=== PATIENT | female | born 1985 ===

== ENCOUNTER 2017-04-27 12:45 | Emergency (ER) | payer OTHER ==
[2017-04-27 13:00] VITALS: BP 123/82; PULSE 69; RESP 17; TEMP 98.2; O2SAT 98
--- NOTE | 2017-04-27 13:16 | C.PDOC ---
History Of Present Illness 31 yr old female presents to the ER with complaints of periumbilical and superpubic pain for the past 3 days. Patient states its waxing and waning, worse with movement and urination. Reports of urinary frequency. Patient states LMP was 3 weeks ago and is on control. Denies fever, chest pain, SOB, nausea, vomiting, diarrhea, constipation, dysuria, incontinence, back pain, weakness or numbness. No prior surgical history. Time Seen by Provider: 04/27/17 13:03 Chief Complaint (Nursing): Abdominal Pain History Per: Patient History/Exam Limitations: no limitations Onset/Duration Of Symptoms: Hrs (3), Waxing/Waning Past Medical History Reviewed: Historical Data, Nursing Documentation, Vital Signs Vital Signs: Last Vital Signs Temp 98.2 F 04/27/17 12:57 Pulse 69 04/27/17 12:57 Resp 17 04/27/17 12:57 BP 123/82 04/27/17 12:57 Pulse Ox 98 04/27/17 13:30 - Medical History PMH: Anxiety, Asthma Family History: States: No Known Family Hx - Social History Hx Tobacco Use: No Hx Alcohol Use: No Hx Substance Use: No - Immunization History Hx Tetanus Toxoid Vaccination: No Hx Influenza Vaccination: No Hx Pneumococcal Vaccination: No Review Of Systems Except As Marked, All Systems Reviewed And Found Negative. Constitutional: Negative for: Fever Cardiovascular: Negative for: Chest Pain Respiratory: Negative for: Shortness of Breath Gastrointestinal: Positive for: Abdominal Pain (Periumbilical and superpubic ). Negative for: Nausea, Vomiting, Diarrhea, Constipation Genitourinary: Positive for: Frequency (Urinary ). Negative for: Dysuria, Incontinence Musculoskeletal: Negative for: Back Pain Neurological: Negative for: Weakness, Numbness Physical Exam - Physical Exam Appears: Non-toxic, No Acute Distress Skin: Warm, Dry, No Rash Head: Atraumatic, Normacephalic Oral Mucosa: Moist Chest: Symmetrical, No Tenderness Cardiovascular: Rhythm Regular, No Murmur Respiratory: Normal Breath Sounds, No Rales, No Rhonchi, No Stridor, No Wheezing Gastrointestinal/Abdominal: Soft, Tenderness (Mild superpubic tenderness.), No Distention, No Guarding, No Rebound Back: Normal Inspection, No CVA Tenderness Extremity: Normal ROM, No Swelling Neurological/Psych: Oriented x3, Normal Speech, Normal Motor ED Course And Treatment - Laboratory Results Urine POC: Negative O2 Sat by Pulse Oximetry: 98 (RA ) Pulse Ox Interpretation: Normal Medical Decision Making Medical Decision Making: PLAN: * POC * Urinalysis Disposition Counseled Patient/Family Regarding: Studies Performed, Diagnosis, Need For Followup, Rx Given - Disposition Referrals: YOUR,PMD [Other] Disposition: HOME/ ROUTINE Disposition Time: 14:02 Condition: GOOD Prescriptions: Nitrofurantoin Macrocrystals [Macrobid] 1 cap PO BID #14 cap Phenazopyridine HCl [Pyridium] 200 mg PO BID #6 tablet Instructions: Urinary Tract Infection in Women (ED) Forms: Work Excuse - Clinical Impression Clinical Impression: UTI (urinary tract infection) - Scribe Statement The provider has reviewed the documentation as recorded by the Marjorieibsherman Owens Provider Attestation: All medical record entries made by the Scribe were at my direction and personally dictated by me. I have reviewed the chart and agree that the record accurately reflects my personal performance of the history, physical exam, medical decision making, and the department course for this patient. I have also personally directed, reviewed, and agree with the discharge instructions and disposition.
[2017-04-27 13:48] LABS: RBC URINE 111 /hpf (0-3); URINE BACTERIA RARE (<OCC); URINE BILIRUBIN NEGATIVE (NEGATIVE); URINE BLOOD 3+ (NEGATIVE); URINE COLOR Yellow (YELLOW); URINE GLUCOSE (UA) NORMAL (Normal); URINE KETONE NEGATIVE (NEGATIVE); URINE LEUKOCYTE ESTERASE 3+ Leu/uL (Negative); URINE PROTEIN 1+ mg/dL (NEGATIVE); URINE UROBILINOGEN NORMAL mg/dL (0.2-1.0); WBC URINE 198 /hpf (0-5)
== END 2017-04-27 14:10 | disposition home or self-care (01) ==
LOC: C.ER 12:45
DX: N39.0 Urinary tract infection, site not specified (principal)

== ENCOUNTER 2017-11-12 13:51 | Emergency (ER) | payer OTHER ==
[2017-11-12 14:23] VITALS: BMI 32.2
[2017-11-12 14:25] VITALS: O2SAT 100
--- NOTE | 2017-11-12 16:00 | US ---
HISTORY: pain ruq COMPARISON: None available TECHNIQUE: Sonographic evaluation of the right upper quadrant of the abdomen. FINDINGS: LIVER: Measures 17.7 cm in length and appears unremarkable. No focal hepatic mass identified. The main portal vein appears patent with normal directional flow. . No mass. No intrahepatic bile duct dilatation. GALLBLADDER: No gallstones. 4 mm echogenic immobile focus, probable gallbladder polyp. No gallbladder wall thickening or pericholecystic edema. Negative sonographic Arias's sign as assessed by the compliance auditor. COMMON BILE DUCT: Measures 3 mm. PANCREAS: Not well-visualized. RIGHT KIDNEY: Measures 12.5 x 4.3 x 5.6 cm. No obstructing calculus or hydronephrosis identified. AORTA: Limited visualization appears grossly unremarkable. IVC: Limited visualization appears grossly unremarkable. OTHER FINDINGS: Trace fluid noted anterior to the right kidney. IMPRESSION: 4 mm echogenic immobile gallbladder focus, probable polyp. No consensus exist regarding management of polyps in the size range. Current recommendations indicate continued surveillance with serial follow-up imaging at 3, 6, and 12 months. Trace fluid, anterior to the right kidney.
--- NOTE | 2017-11-12 16:22 | C.PDOC ---
History Of Present Illness 32 year old female presents to the ED for evaluation of abdominal pain that is associated with nausea which began yesterday. Patient reports having a normal bowel movement yesterday, denies any changes in eating habits, and has not taken any medicine for her symptoms. Patient denies fever, chills, vomiting, and diarrhea. Time Seen by Provider: 11/12/17 14:55 Chief Complaint (Nursing): Abdominal Pain History Per: Patient History/Exam Limitations: no limitations Onset/Duration Of Symptoms: Hrs Current Symptoms Are (Timing): Still Present Location Of Pain/Discomfort: RUQ Radiation Of Pain To:: None Quality Of Discomfort: "Pain" Associated Symptoms: Nausea. denies: Fever, Chills, Vomiting, Diarrhea Additional History Per: Patient Abnormal Vaginal Bleeding: No Past Medical History Reviewed: Historical Data, Nursing Documentation, Vital Signs Vital Signs: Last Vital Signs Temp 98.6 F 11/12/17 17:40 Pulse 73 11/12/17 17:40 Resp 18 11/12/17 17:40 BP 122/79 11/12/17 17:40 Pulse Ox 100 11/12/17 17:40 - Medical History PMH: Anxiety, Asthma Surgical History: No Surg Hx Family History: States: Unknown Family Hx - Social History Hx Tobacco Use: No Hx Alcohol Use: No Hx Substance Use: No - Immunization History Hx Tetanus Toxoid Vaccination: No Hx Influenza Vaccination: No Hx Pneumococcal Vaccination: No Review Of Systems Constitutional: Negative for: Fever, Chills Gastrointestinal: Positive for: Nausea, Abdominal Pain. Negative for: Vomiting , Diarrhea Physical Exam - Physical Exam Appears: Non-toxic, No Acute Distress Skin: Normal Color, Warm, Dry Head: Atraumatic, Normacephalic Eye(s): bilateral: Normal Inspection Oral Mucosa: Moist Neck: Supple Chest: Symmetrical, No Deformity, No Tenderness Cardiovascular: Rhythm Regular, No Murmur Respiratory: Normal Breath Sounds, No Rales, No Rhonchi, No Wheezing Gastrointestinal/Abdominal: Soft, Tenderness (right upper quadrant ), No Guarding, No Rebound Extremity: Normal ROM, Capillary Refill (less than 2 seconds ) Neurological/Psych: Oriented x3, Normal Speech, Normal Cognition Gait: Steady ED Course And Treatment - Laboratory Results Result Diagrams: 11/12/17 16:28 11/12/17 16:28 O2 Sat by Pulse Oximetry: 100 (on RA) - CT Scan/US Abd US Other Rad Studies (CT/US): Read By Radiologist, Radiology Report Reviewed CT/US Interpretation: HISTORY: pain ruq. COMPARISON: None available. TECHNIQUE: Sonographic evaluation of the right upper quadrant of the abdomen. FINDINGS: LIVER: Measures 17.7 cm in length and appears unremarkable. No focal hepatic mass identified. The main portal vein appears patent with normal directional flow. . No mass. No intrahepatic bile duct dilatation. GALLBLADDER : No gallstones. 4 mm echogenic immobile focus, probable gallbladder polyp. No gallbladder wall thickening or pericholecystic edema. Negative sonographic Arias's sign as assessed by the post anesthesia nurse. COMMON BILE DUCT: Measures 3 mm. PANCREAS: Not well-visualized. RIGHT KIDNEY: Measures 12.5 x 4.3 x 5.6 cm. No obstructing calculus or hydronephrosis identified. AORTA: Limited visualization appears grossly unremarkable. IVC: Limited visualization appears grossly unremarkable. OTHER FINDINGS: Trace fluid noted anterior to the right kidney. IMPRESSION: 4 mm echogenic immobile gallbladder focus, probable polyp. No consensus exist regarding management of polyps in the size range. Current recommendations indicate continued surveillance with serial follow-up imaging at 3, 6, and 12 months. Trace fluid, anterior to the right kidney. Progress Note: Bloodwork, urinalysis, and Abdomen US ordered and reviewed. Pepcid IVP and Toradol IVP administered. On reassessment, patient is resting comfortably, tolerating PO intake, is showing no signs of distress and reports an improvement in her symptoms. Patient is stable for discharge and is advised to f/u with her PMD within 1-2 days for further evaluation and/or return to the ED if symptoms persist or worsen. Pt was given copies of US and instructed strict follow up. Case discussed with Dr Parsons, agreed upon plan and discharge. Reassessment Condition: Improved Disposition - Disposition Disposition: HOME/ ROUTINE Disposition Time: 17:10 Condition: STABLE Additional Instructions: Follow up with your primary medical doctor or clinic in 2-5 days for further evaluation. Take medications as prescribed. Return to the emergency department at any time if symptoms persist or worsen. Prescriptions: Famotidine [Pepcid] 20 mg PO BID #10 tab Instructions: Acute Abdominal Pain (ED) Forms: [employer] ([place]) - Clinical Impression Clinical Impression: Abdominal pain - PA / FLIGHT CONTROL SPECIALIST / Resident Statement MD/DO has reviewed & agrees with the documentation as recorded. - Scribe Statement The provider has reviewed the documentation as recorded by the Scribe (Tracy Joseph) All medical record entries made by the Scribe were at my direction and personally dictated by me. I have reviewed the chart and agree that the record accurately reflects my personal performance of the history, physical exam, medical decision making, and the department course for this patient. I have also personally directed, reviewed, and agree with the discharge instructions and disposition.
[2017-11-12 16:33] LABS: BASO % 0.3 % (0.0-2.0); EOS # 0.1 K/uL (0.0-0.7); EOS % 0.9 % (0.0-4.0); HEMOGLOBIN 12.5 g/dL (11.0-16.0); LYMPH # 2.5 K/uL (1.0-4.3); LYMPH % 26.2 % (20.0-40.0); MEAN CELL VOLUME 89.2 fL (81.0-99.0); MEAN CORPUSCULAR HEMOGLOBIN 30.1 pg (27.0-31.0); MEAN CORPUSCULAR HGB CONC 33.7 g/dL (33.0-37.0); MEAN PLATELET VOLUME 7.7 fL (7.2-11.7); MONO # 0.9 K/uL (0.0-0.8); MONO % 9.5 % (0.0-10.0); NEUT # 5.9 K/uL (1.8-7.0); NEUT % 63.1 % (50.0-75.0); RBC 4.17 Mil/uL (3.80-5.20); RED CELL DISTRIBUTION WIDTH 13.3 % (11.5-14.5); WHITE BLOOD COUNT 9.4 K/uL (4.8-10.8)
[2017-11-12 16:35] LABS: HCG,QUALITATIVE URINE NEGATIVE (NEGATIVE)
[2017-11-12 16:38] LABS: SQUAMOUS EPITHIAL 3 /hpf (0-5); URINE BILIRUBIN NEGATIVE (NEGATIVE); URINE BLOOD 2+ (NEGATIVE); URINE CLARITY Clear (Clear); URINE COLOR Yellow (YELLOW); URINE GLUCOSE (UA) NORMAL (Normal); URINE LEUKOCYTE ESTERASE NEG Leu/uL (Negative); URINE NITRATE NEGATIVE (NEGATIVE); URINE PROTEIN NEGATIVE (NEGATIVE); URINE UROBILINOGEN NORMAL mg/dL (0.2-1.0)
[2017-11-12 16:49] LABS: ALB/GLOB RATIO 1.1 (1.0-2.1); ALBUMIN 3.8 g/dL (3.5-5.0); ALT/SGPT 33 U/L (9-52); AST/SGOT 25 U/L (14-36); BLOOD UREA NITROGEN 12 mg/dL (7-17); CALCIUM 8.7 mg/dl (8.6-10.4); GFR AFRICAN-AMERICAN > 60; GFR NON-AFRICAN AMERICAN > 60; LIPASE 107 U/L (23-300)
[2017-11-12 18:01] VITALS: BP 122/79; PULSE 73; RESP 18; TEMP 98.6
== END 2017-11-12 17:40 | disposition home or self-care (01) ==
LOC: C.ER 13:51
DX: R10.11 Right upper quadrant pain (principal)
CPT/HCPCS: 76705; 80053; 81001; 83690; 84703; 85025; 96374; 96375; 99285; J1885

== ENCOUNTER 2018-09-25 23:01 | Emergency (ER) | payer SELFPAY ==
[2018-09-25 23:01] VITALS: BMI 32.2
[2018-09-26] MEDS ORDERED: Lidocaine 2% Inj (20ml) INFIL ONE (00:17)
--- NOTE | 2018-09-26 01:27 | C.PDOC ---
History Of Present Illness 33 year old female presents to the ER with a complaint of an abscess to the lower back. Patient states she had a similar presentation a few years ago and had an I&D done. Patient began having pain last night that worsens with standing. Denies fever or chills. Time Seen by Provider: 09/25/18 23:32 Chief Complaint (Nursing): Abnormal Skin Integrity History Per: Patient History/Exam Limitations: no limitations Onset/Duration Of Symptoms: Days Current Symptoms Are (Timing): Still Present Quality Of Symptoms: Other (Abscess) Recent travel outside of the [place]: No Past Medical History Reviewed: Historical Data, Nursing Documentation, Vital Signs Vital Signs: Last Vital Signs Temp 98.4 F 09/25/18 23:09 Pulse 84 09/25/18 23:09 Resp 18 09/25/18 23:09 BP 108/73 09/25/18 23:09 Pulse Ox 99 09/25/18 23:09 - Medical History PMH: Anxiety, Asthma Family History: States: Unknown Family Hx - Social History Hx Tobacco Use: No Hx Alcohol Use: No Hx Substance Use: No - Immunization History Hx Tetanus Toxoid Vaccination: No Hx Influenza Vaccination: No Hx Pneumococcal Vaccination: No Review Of Systems Constitutional: Negative for: Fever, Chills Skin: Positive for: Other (Abscess) Neurological: Negative for: Weakness, Numbness Physical Exam - Physical Exam Appears: Non-toxic, No Acute Distress Skin: Warm, Dry, No Rash Head: Atraumatic, Normacephalic Eye(s): bilateral: Normal Inspection Oral Mucosa: Moist Neck: Normal ROM Back: Other (Pilonidal cyst to coccygeal region with swelling and induration) Extremity: Normal ROM (x4), No Swelling Neurological/Psych: Oriented x3, Normal Speech ED Course And Treatment O2 Sat by Pulse Oximetry: 99 (Room air) Pulse Ox Interpretation: Normal Medical Decision Making Medical Decision Making: Aspiration attempted with no success. Patient started on clinda, advised to apply warm compressed, and follow up for wound check. Disposition - Disposition Referrals: Alberto Moya MD [Staff Provider] - [facility] [Outside] Disposition: HOME/ ROUTINE Disposition Time: 01:28 Condition: STABLE Additional Instructions: APPLY WARM COMPRESSES TO THE REGION 4-5 TIMES PER DAY. RETURN TO THE ED IN 2-3 DAYS FOR WOUND CHECK AND POSSIBLE I&D. Prescriptions: Clindamycin [Cleocin] 300 mg PO TID #30 cap Ibuprofen [Motrin] 600 mg PO TID #21 tab Instructions: Pilonidal Cyst (DC) Forms: [employer] (Slovenian) - Clinical Impression Clinical Impression: Abscess - PA / COMMUNICATIONS FIELD TECHNICIAN / Resident Statement MD/DO has reviewed & agrees with the documentation as recorded. - Scribe Statement The provider has reviewed the documentation as recorded by the Scribsherman Merino All medical record entries made by the Marjorieibsherman were at my direction and personally dictated by me. I have reviewed the chart and agree that the record accurately reflects my personal performance of the history, physical exam, medical decision making, and the department course for this patient. I have also personally directed, reviewed, and agree with the discharge instructions and disposition.
[2018-09-26 01:46] VITALS: BP 106/72; PULSE 79; RESP 20; TEMP 98.1
[2018-09-26 02:21] VITALS: O2SAT 99
== END 2018-09-26 01:45 | disposition home or self-care (01) ==
LOC: C.ER 23:01
DX: L02.212 Cutaneous abscess of back [any part, except buttock and flank] (principal)